=== PATIENT | male | born 1940 | race Caucasian/White ===

== ENCOUNTER → 2018-11-11 | Outpatient (CLI) | payer MEDICARE, BC ==
[~2018-11-11] MED LIST: AMLODIPINE BESY10 MG PO; ASPIR 8181 M1 PO; FISH OIL 1,001000 M2 PO; LIPITOR10 MG PO; LISINOPRIL-HCT1 EAC1 PO; PRILOSEC 20 MG20 MG PO; TRAMADOL 50 MG50 MG PO
[2018-11-11 09:25] LABS: HEMATOCRIT 41.3 % (42.0-52.0); HEMOGLOBIN 13.5 gm/dL (14.0-18.0); MCH 29.3 pg (26.0-34.0); MCHC 32.7 g/dL (28.0-37.0); MCV 89.6 fL (80.0-100.0); MPV 9.6 fl. (7.2-11.1); RBC 4.61 mil/uL (4.50-6.00); RDW-CV 13.2 % (10.5-14.5); WBC 7.2 thou/uL (4.0-11.0)
[2018-11-11 09:41] LABS: ALBUMIN 3.8 g/dL (3.4-5.0); ANION GAP 7 mmol/L (7-16); BUN 20 mg/dL (7-18); CALCIUM 9.6 mg/dL (8.5-10.1); CHLORIDE 104 mmol/L (98-107); CHOLESTEROL 141 mg/dL (<200); CO2 29 mmol/L (21-32); GLUCOSE 153 mg/dL (70-99); HDL CHOLESTEROL 41 mg/dL (>40); LDL CHOLESTEROL 82 mg/dL (<100); PHOSPHORUS* 3.4 mg/dL (2.5-4.9); POTASSIUM 3.8 mmol/L (3.5-5.1); SERUM ASSESSMENT Clear; SODIUM 140 mmol/L (136-145); TC:HDL 3.4 Ratio (Not establshd); TRIGLYCERIDE 91 mg/dL (<150); VLDL 18 mg/dL (<40)
[2018-11-12 02:05] LABS: GLYCOHEMOGLOBIN (HGB A1C) 7.1 % (4.8-5.6)
[2018-11-13 09:08] LABS: FREE PSA 0.22 ng/mL
[2018-11-19 18:30] LABS: % FREE PSA 36.7 % (())
== END ==
LOC: M.LAB 08:50
PROVIDERS: Internal Medicine Nephrology
DX: I10 Essential (primary) hypertension (principal); E78.5 Hyperlipidemia, unspecified; R73.9 Hyperglycemia, unspecified; E78.00 Pure hypercholesterolemia, unspecified; N40.0 Benign prostatic hyperplasia without lower urinary tract symptoms